=== PATIENT | female | born 1965 | race Caucasian/White ===

== ENCOUNTER → 2020-06-24 | Day surgery (SDC) | payer MEDICAID ==
[2020-06-19 10:23] LABS: Basophils # (auto) 0 10 ^3/uL (0-0.2); Basophils % (auto) 0.2 % (0.0-2.0); Eosinophils # (auto) 0.1 10 ^3/uL (0-0.8); Eosinophils % (auto) 0.8 % (0.0-7.0); Hematocrit 44.1 % (36.0-46.0); Lymphocytes # (auto) 3.4 10 ^3/uL (0.4-5.4); Lymphocytes % (auto) 38.8 % (10.0-50.0); Mean Corpuscular Hemoglobin 28.5 pg (28.0-32.0); Mean Corpuscular Hgb Conc. 31.8 g/dL (32.0-36.0); Mean Corpuscular Volume 89.7 fL (80.0-100.0); Monocytes # (auto) 0.4 10 ^3/uL (0-1.3); Monocytes % (auto) 4.1 % (0.0-12.0); Neutrophils # (auto) 4.9 10 ^3/uL (1.6-8.6); Neutrophils % (auto) 56.1 % (37.0-80.0); Platelet Count (auto) 328 10^3/uL (140-450); Red Blood Cells 4.92 10^6/uL (4.0-5.20); Red Cell Distribution Width 14.5 % (11.8-14.3); White Blood Cell 8.8 10^3/uL (4.4-10.8)
[2020-06-19 10:29] LABS: Urine Bacteria MANY /hpf (None Seen); Urine Blood Negative /uL (Negative); Urine Specific Gravity 1.007 (1.001-1.035); Urine WBC 6 /hpf (0 - 5)
[2020-06-19 10:41] LABS: INR 0.95 (0.9-1.15); Partial Thromboplastin Time 27.8 sec (23.0-31.2)
[2020-06-19 11:01] LABS: Albumin 4.1 g/dL (3.4-5.0); Calcium 9.5 mg/dL (8.5-10.1); Potassium 4.2 mmol/L (3.5-5.1)
[2020-06-19 11:10] LABS: BUN/Creatinine Ratio 8.6; Bilirubin, Total 0.3 mg/dL (0.2-1.0); Total Protein 7.9 g/dL (6.4-8.2)
[~2020-06-24] VITALS: Ht 167.6 cm; Wt 83.9 kg
[~2020-06-24] MED LIST: AMIT25TA9 PO; ARIP1TAB7 PO; ASPI-543 PO; BUPIVACAINE HCL 50 ML ONE; CLINDAMYCIN 900MG IV 50 ML IV ONE; FLUO-125 PO; GABA300C10 PO; GLYCOPYRROLATE 0.2 MG/ML 1ML VIAL ONE; HYDR-531 PO; HYDR25TA4 PO; HYDROmorphone HCL 2 MG/ML VL IV PRN; KETAMINE HCL 10 ML ONE; LIDOCAINE 1% HCL (LOCAL ANESTH.) INJ 20ML MDV ONE; MELO1TAB56 PO; METOCLOPRAMIDE HCL 5MG/ml INJ 2ml VIAL ONE; MIDAZOLAM HCL 1MG/1ML-2 ML VIAL ONE; NALOXONE HCL 0.4 MG/ML VIAL IV PRN; ONDANSETRON HCL 4 MG/2 ML VIAL IV PRN; PROPOFOL 10 MG/ML 20 ML IV ONE; SUCCINYLCHOLINE CHLORIDE 20 MG/ML 10ML VIAL IV ONE; diphenhdrAMINE HCL 50 MG/1 ML VL ONE
[2020-06-24 09:40] VITALS: BP 131/76
== END | disposition home or self-care (01) ==
LOC: SUR 06:39
PROVIDERS: ATTEND Podiatrist
DX: M67.472 Ganglion, left ankle and foot (principal); I10 Essential (primary) hypertension; E66.01 Morbid (severe) obesity due to excess calories; G89.29 Other chronic pain; F32.9 Major depressive disorder, single episode, unspecified; G47.33 Obstructive sleep apnea (adult) (pediatric); G62.9 Polyneuropathy, unspecified; Z88.0 Allergy status to penicillin; Z88.5 Allergy status to narcotic agent; Z79.899 Other long term (current) drug therapy; Z98.890 Other specified postprocedural states; Z68.30 Body mass index [BMI] 30.0-30.9, adult; Z20.828 Contact with and (suspected) exposure to other viral communicable diseases
CPT/HCPCS: 28090; 36415; 80053; 81001; 85025; 85610; 85730; 88304; J0330; J1200; J2001; J2250; J2704; J2765; J3490; U0003

== ENCOUNTER 2024-09-11 08:58 | Day surgery (SDC) | payer MEDICAID ==
[2024-09-09 10:06] LABS: Urine Bacteria None Seen /hpf (None Seen)
[2024-09-09 10:29] LABS: Urine Blood Negative /uL (Negative); Urine Clarity Clear (Clear); Urine Color Light-Yellow (Yellow); Urine Protein, UAD Negative (Negative); Urine Specific Gravity 1.019 (1.001-1.035); Urine Urobilinogen Normal (Negative); Urine WBC 7 /hpf (0 - 5)
[2024-09-09 10:33] LABS: Basophils # (auto) 0 10 ^3/uL (0-0.2); Basophils % (auto) 0.2 % (0.0-2.0); Eosinophils # (auto) 0.1 10 ^3/uL (0-0.8); Eosinophils % (auto) 0.9 % (0.0-7.0); Hematocrit 41.9 % (36.0-46.0); Hemoglobin 13.8 g/dL (12.2-16.2); Lymphocytes # (auto) 3.2 10 ^3/uL (0.4-5.4); Lymphocytes % (auto) 36.9 % (10.0-50.0); Mean Corpuscular Hemoglobin 30.2 pg (28.0-32.0); Mean Corpuscular Volume 91.3 fL (80.0-100.0); Monocytes # (auto) 0.5 10 ^3/uL (0-1.3); Monocytes % (auto) 6.3 % (0.0-12.0); Neutrophils # (auto) 4.8 10 ^3/uL (1.6-8.6); Neutrophils % (auto) 55.7 % (37.0-80.0); Platelet Count (auto) 330 10^3/uL (140-450); Red Blood Cells 4.59 10^6/uL (4.0-5.20); Red Cell Distribution Width 13.8 % (11.8-14.3); White Blood Cell 8.6 10^3/uL (4.4-10.8)
[2024-09-09 10:36] LABS: INR 0.98 (0.9-1.15); Partial Thromboplastin Time 29.1 SEC (24.5-34.5); Prothrombin Time 10.4 sec (9.3-11.8)
[2024-09-09 11:00] LABS: Alanine Aminotransferase 16 U/L (7-40); Alkaline Phosphatase 125 U/L (46-116); Anion Gap 7 (5-15); Aspartate Aminotransferase 21 U/L (13-40); BUN/Creatinine Ratio 15.6 (10.0-20.0); Bilirubin, Total 0.5 mg/dL (0.2-1.0); Blood Urea Nitrogen 12 mg/dL (9-23); Calcium 10.5 mg/dL (8.7-10.4); Carbon Dioxide 28 mmol/L (20-31); Chloride 106 mmol/L (98-107); Glucose 91 mg/dL (74-106); Potassium 4.3 mmol/L (3.5-5.1); Sodium 141 mmol/L (136-145)
[2024-09-09 11:01] LABS: Total Protein 7.7 g/dL (5.7-8.2)
[~2024-09-11] VITALS: Ht 167.6 cm; Wt 76.2 kg
[~2024-09-11 08:58] MED LIST changes: -AMIT25TA9 PO; -ARIP1TAB7 PO; -ASPI-543 PO; +ATOR20TA PO; -BUPIVACAINE HCL 50 ML ONE; -CLINDAMYCIN 900MG IV 50 ML IV ONE; -FLUO-125 PO; -GABA300C10 PO; -GLYCOPYRROLATE 0.2 MG/ML 1ML VIAL ONE; -HYDR-531 PO; -HYDR25TA4 PO; -HYDROmorphone HCL 2 MG/ML VL IV PRN; -KETAMINE HCL 10 ML ONE; -LIDOCAINE 1% HCL (LOCAL ANESTH.) INJ 20ML MDV ONE; -MELO1TAB56 PO; -METOCLOPRAMIDE HCL 5MG/ml INJ 2ml VIAL ONE; -MIDAZOLAM HCL 1MG/1ML-2 ML VIAL ONE; -NALOXONE HCL 0.4 MG/ML VIAL IV PRN; -ONDANSETRON HCL 4 MG/2 ML VIAL IV PRN; -PROPOFOL 10 MG/ML 20 ML IV ONE; -SUCCINYLCHOLINE CHLORIDE 20 MG/ML 10ML VIAL IV ONE; -diphenhdrAMINE HCL 50 MG/1 ML VL ONE
[2024-09-11] MEDS: ceFAZolin 2 GM/D5W100ml 100 ML IV ONE (10:56)
[2024-09-11] MEDS ORDERED: PROPOFOL 10 MG/ML 20 ML IV ONE (11:10)
[2024-09-11] MEDS ORDERED: KETOROLAC TROMETH 30 MG/ML 1ML VIAL ONE (11:10)
[2024-09-11] MEDS ORDERED: ONDANSETRON HCL 4 MG/2 ML VIAL ONE (11:10)
[2024-09-11] MEDS ORDERED: LIDOCAINE 2% (LOCAL ANESTH.) PF 5ml SDV ONE (11:10)
[2024-09-11] MEDS ORDERED: DexAMETHasone SOD PHOS 10MG/1ML VIAL INJ ONE ×2 (11:10→11:42)
[2024-09-11] MEDS ORDERED: GLYCOPYRROLATE 0.2 MG/ML 1ML VIAL ONE (11:10)
[2024-09-11] MEDS ORDERED: KETAMINE 50mg/ML 1ml syringe ONE (11:11)
[2024-09-11] MEDS ORDERED: fentaNYL CITRATE 100 MCG/2 ML VL ONE (11:11)
[2024-09-11] MEDS ORDERED: EPINEPHrine HCL 1 MG/1 ML AMP ONE (11:42)
--- NOTE | 2024-09-11 11:48 | DVHOP2 ---
Operative Report - 2 Report Details Date: 09/11/24 Preop Diagnosis: 1. 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 Left foot pain 3. Left medial border hallux ingrown Postop Diagnosis: Same as preop Surgeon: Ceci Medina MD Anesthesiologist: See anesthesia Anesthesia: General Implant: Arthrex 20 x 20 staple Consent: The patient was informed of the risks and benefits of the procedure. These include but are not limited to complications of anesthesia, postoperative infection, incomplete relief of symptoms, recurrence of symptoms, damage to blood vessels, nerves and tendons, deep venous thrombosis, pulmonary embolism and possible need for repeat surgery in the future. Complications: None Estimated Blood Loss: Minimal Fluids: See anesthesia Findings: Consistent with diagnosis Indications for Surgery: Worsening left foot pain Name of Procedure Performed 1. Left second TMT arthrodesis (95654) 2. Left hallux medial border matrixectomy (81261) Procedure Details Procedure Details: PRE-PROCEDURE INFORMATION: In the pre-op holding area, the extremity to be operated on was clearly marked and the patient verified correct laterality of the marking. The patient was transferred to the OR table and placed in a supine position. A timeout was performed in which identification of the correct patient, procedure, location, and materials was done. The left foot and leg were prepped and draped in normal sterile fashion. The foot and leg were exsanguinated and the thigh tourniquet was inflated to 250 mmHg. DESCRIPTION OF PROCEDURE: Attention was directed to the left second metatarsal cuneiform joint where an incision was made on the dorsal aspect of the foot just over the second MC joint. The incision was deepened through blunt and sharp dissection. Care was taken throughout dissection to avoid damage to neurovascular structures including the deep peroneal nerve and dorsalis pedis artery as well as the extensor tendons. This incision was carried to the level of the second metatarsal cuneiform joint where the joint capsule was incised for inspection of the joint. There was notable degenerative changes of the articular cartilage of the joint. The periosteum of the second metatarsal base and medial cuneiform were reflected and utilizing a joint retractor, the joint was distracted and any remaining cartilage was removed using sharp instrumentation. The cartilage was removed to the level of subchondral bone on both sides of the joint. Utilizing a Arthrex staple, the staple was placed over the fusion site and adequate compression of the second metatarsal cuneiform joint was obtained. Proper placement of hardware as well as compression of the joint was verified on intraoperative fluoroscopy. Attention was directed to the left hallux medial border. Using a freer elevator, [place] Anvil, and hemostat, the offending nail and/or nail border(s) was elevated and removed. Mild serous drainage noted, no purulent drainage. Non- viable tissue was removed with a curette. The nail border(s) were then treated with 3 applications of approximately 20-30 seconds of slurred nitrate followed by neutralization with alcohol. Bacitracin, sterile gauze and Coban dressing was applied to the digit. All surgical wounds were irrigated copiously with saline and closed in layers with the aforementioned suture material. A dry sterile dressing was placed on the surgical extremity. The patient was placed in a cam boot POSTOPERATIVE INFORMATION: The patient tolerated the above noted procedure and anesthesia well and was transferred to the PACU with vital signs stable, and vascular status intact with capillary refill intact to all digits. Postoperative instructions reviewed in detail with the patient with written instructions provided. Patient will return to clinic in approximately 10-14 days for first postoperative visit. Patient has the number of the clinic and was instructed to call prior to that time should any problems, questions, or concerns arise. Condition Good Disposition Home CECI MEDINA DPM Sep 11, 2024 11:48
[2024-09-11] MEDS ORDERED: BUPIVACAINE 0.5% MPF INJ 30ML SDV IJ ONE (11:50)
[2024-09-11 11:51] VITALS: PULSE 79; RESP 14; TEMP 98.4; O2SAT 100
[2024-09-11] MEDS ORDERED: NALOXONE HCL 0.4 MG/ML VIAL IV PRN (12:00)
[2024-09-11] MEDS ORDERED: ePHEDrine SULFATE 50 MG/ML AMP IV PRN (12:00)
[2024-09-11] MEDS ORDERED: hydrALAZINE HCL 20 MG/ML VL IV PRN (12:00)
[2024-09-11] MEDS ORDERED: FLUMAZENIL 0.1 MG/ML INJ 10ML MDV IV PRN (12:00)
[2024-09-11] MEDS ORDERED: ONDANSETRON HCL 4 MG/2 ML VIAL IV PRN (12:00)
[2024-09-11] MEDS ORDERED: fentaNYL CITRATE 100 MCG/2 ML VL IV PRN (12:00)
[2024-09-11] MEDS: HYDROmorphone HCL 2 MG/ML VL/or syr IV PRN (12:08)
[2024-09-11] MEDS ORDERED: ESMOLOL HCL 10 ML IV ONE (12:22)
[2024-09-11] MEDS ORDERED: BACITRACIN TOP OINT 1 UD PKG TOP ONE (12:48)
[2024-09-11] MEDS: oxyCODONE HCL 5MG TAB PO ONE (12:51)
[2024-09-11 13:06] VITALS: BP 132/83; PULSE 73; RESP 16; O2SAT 100
[2024-09-11] MEDS ORDERED: HYDROmorphone HCL 2 MG/ML VL/or syr ONE (13:10)
== END 2024-09-11 13:25 | disposition home or self-care (01) ==
LOC: SUR 08:58
PROVIDERS: ATTEND Podiatrist
DX: M19.072 Primary osteoarthritis, left ankle and foot (principal); M20.5X2 Other deformities of toe(s) (acquired), left foot; L60.0 Ingrowing nail; M79.672 Pain in left foot; E78.5 Hyperlipidemia, unspecified; Z88.0 Allergy status to penicillin; Z88.8 Allergy status to other drugs, medicaments and biological substances; Z98.890 Other specified postprocedural states
CPT/HCPCS: 11750; 28740; 36415; 80053; 81001; 85025; 85610; 85730; J0171; J1100; J1171; J1885; J2003; J2405; J2704; J3010; J3490

== ENCOUNTER 2025-09-08 11:07 | Day surgery (SDC) | payer MEDICAID ==
[2025-09-05 11:25] LABS: Hematocrit 41.6 % (36.0-46.0); Hemoglobin 14.1 g/dL (12.2-16.2); Mean Corpuscular Hemoglobin 30.6 pg (28.0-32.0); Mean Corpuscular Volume 90.4 fL (80.0-100.0); Nucleated Red Blood Cells % 0.2 %
[2025-09-05 11:40] LABS: INR 0.98 (0.9-1.15); Partial Thromboplastin Time 28.3 SEC (24.5-34.5); Prothrombin Time 10.4 sec (9.3-11.8)
[2025-09-05 12:44] LABS: Alanine Aminotransferase 13 U/L (7-40); Albumin 4.8 g/dL (3.2-4.8); Alkaline Phosphatase 109 U/L (46-116); Anion Gap 8 (5-15); BUN/Creatinine Ratio 10.8 (10.0-20.0); Bilirubin, Total 0.4 mg/dL (0.2-1.0); Blood Urea Nitrogen 9 mg/dL (9-23); Calcium 9.5 mg/dL (8.7-10.4); Carbon Dioxide 30 mmol/L (20-31); Chloride 103 mmol/L (98-107); Glucose 105 mg/dL (74-106); Potassium 3.8 mmol/L (3.5-5.1); Sodium 141 mmol/L (136-145); Total Protein 7.6 g/dL (5.7-8.2)
[2025-09-05 12:50] LABS: Urine Budding Yeast OCCASIONAL /hpf (None Seen); Urine Protein, UAD Negative (Negative)
[~2025-09-08] VITALS: Ht 165.1 cm; Wt 80.7 kg
[~2025-09-08 11:07] MED LIST changes: +ARIP2TAB PO; -ATOR20TA PO; +FLUO40CA PO; +HYDR-3682 PO; +LORA-622 PO; +ROSU20TA56 PO; +TRAZ-228 PO
[2025-09-08 11:50] VITALS: TEMP 97.2
[2025-09-08] MEDS: ceFAZolin 2 GM/D5W50ml 50 ML IV ONE (12:38)
[2025-09-08] MEDS: LIDOCAINE 1% HCL (LOCAL ANESTH.) INJ 20ML MDV ONE (12:48)
[2025-09-08] MEDS ORDERED: MIDAZOLAM HCL 2MG/2ML 2ml VIAL (1mg/ml) IV PRN ×2 (13:00→13:30)
[2025-09-08] MEDS ORDERED: ONDANSETRON HCL 4 MG/2 ML VIAL IV PRN ×2 (13:00→13:30)
[2025-09-08] MEDS ORDERED: hydrALAZINE HCL 20 MG/ML VL IV PRN ×2 (13:00→13:30)
--- NOTE | 2025-09-08 13:14 | DVHOP2 ---
Operative Report - 2 Report Details Date: 09/08/25 Preop Diagnosis: 1. Right foot tailors bunion 2. Left foot tailors bunion 3. Left foot neuroma 4. Left foot pain 5. Right foot pain Postop Diagnosis: Same as preop Surgeon: Ceci Medina MD Anesthesiologist: See anesthesia Anesthesia: Mac Implant: 6 2 K-wire x2 Consent: The patient was informed of the risks and benefits of the procedure. These include but are not limited to complications of anesthesia, postoperative infection, incomplete relief of symptoms, recurrence of symptoms, damage to bl ood vessels, nerves and tendons, deep venous thrombosis, pulmonary embolism and possible need for repeat surgery in the future. Complications: None Estimated Blood Loss: Minimal Fluids: See anesthesia Findings: Consistent with diagnosis Indications for Surgery: Worsening foot pain Name of Procedure Performed 1. Right foot tailors bunionectomy (06432) 2. Left foot tailors bunionectomy (92194) 3. Left foot neuroma excision (85022) 4. Left foot nerve decompression (40332) Procedure Details Procedure Details: PRE-PROCEDURE INFORMATION: In the pre-op holding area, the extremity to be operated on was clearly marked and the patient verified correct laterality of the marking. The patient was transferred to the OR table and placed in a supine position. A timeout was performed in which identification of the correct patient, procedure, location, and materials was done. The bilateral foot and leg were prepped and draped in normal sterile fashion. The foot and leg were exsanguinated in the left foot Esmarch was placed DESCRIPTION OF PROCEDURE: Attention was directed to the left lateral fifth metatarsal head where a stab incision was made. This incision was deepened through blunt and sharp dissection. Care was taken to avoid damage to neuro vascular structures throughout dissection. The incision was carried to the level of the fifth metatarsal head where it was noted there was no significantly increased lateral deviation angle of the fifth metatarsal, but the lateral aspect of the fifth metatarsal head appeared to be prominent. This indicated that the patient would benefit from an ostectomy of the metatarsal head without osteotomy. Using an MIS bur, an osteotomy was made across the neck of the metatarsal head. Using a 0.62 K wire, the wire was then placed down the shaft of the 5th metatarsal holding the head in the appropriate position. Attention was directed to the left foot where linear incision was made at the dorsal 3rd interspace. Care was taken throughout the dissection to avoid damage to the neurovascular and tendinous structures. Hemostasis was achieved via electrocautery. The incision was deepened through blunt dissection to the level of the deep transverse intermetatarsal ligament. Once the ligament was visualized it was transected using dissecting scissors, effectively decompressing the underlying plantar nerve. 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 The nerve was dissected proximally and was transected. The neuroma was removed and sent to pathology. Attention was directed to the right lateral fifth metatarsal head where a stab incision was made. This incision was deepened through blunt and sharp dissection. Care was taken to avoid damage to neurovascular structures throughout dissection. The incision was carried to the level of the fifth metatarsal head where it was noted there was no significantly increased lateral deviation angle of the fifth metatarsal, but the lateral aspect of the fifth metatarsal head appeared to be prominent. This indicated that the patient would benefit from an ostectomy of the metatarsal head without osteotomy. Using an MIS bur, an osteotomy was made across the neck of the metatarsal head. Using a 0.62 K wire, the wire was then placed down the shaft of the 5th metatarsal holding the head in the appropriate position. All surgical wounds were irrigated copiously with saline and closed in layers with the aforementioned suture material. A dry sterile dressing was placed on the surgical extremity. The patient was placed in a post op shoe POSTOPERATIVE INFORMATION: The patient tolerated the above noted procedure and anesthesia well and was transferred to the PACU with vital signs stable, and vascular status intact with capillary refill intact to all digits. Postoperative instructions reviewed in detail with the patient with written instructions provided. Patient will return to clinic in approximately 10-14 days for first postoperative visit. Patient has the number of the clinic and was instructed to call prior to that time should any problems, questions, or concerns arise. Condition Good Disposition Home Visit Coding Podiatry Date of Service if different f: Sep 08, 2025 Billing Provider: CECI MEDINA DPM Podiatry Common Visit Codes: PROCEDURE ONLY CECI MEDINA DPM Sep 08, 2025 13:14
[2025-09-08] MEDS ORDERED: BUPIVACAINE 0.5% P/F INJ 10 ML VIAL ONE (13:15)
[2025-09-08 13:20] VITALS: O2SAT 100
[2025-09-08] MEDS: MORPHINE SULFATE 4 MG/ML SYR/VIAL IV PRN (13:24)
[2025-09-08] MEDS ORDERED: fentaNYL CITRATE 100 MCG/2 ML VL IV PRN (13:30)
[2025-09-08] MEDS ORDERED: KETOROLAC TROMETH 30 MG/ML 1ML VIAL IV ONE (13:30)
[2025-09-08] MEDS ORDERED: fentaNYL CITRATE 100 MCG/2 ML VL ONE (13:35)
[2025-09-08] MEDS ORDERED: MIDAZOLAM HCL 2MG/2ML 2ml VIAL (1mg/ml) ONE (13:35)
[2025-09-08] MEDS ORDERED: MEPERIDINE HCL (25 MG/ML) 1ML VIAL ONE (13:35)
[2025-09-08] MEDS: MORPHINE SULFATE INJ 2 MG/ml SYRG ONE (13:35)
[2025-09-08] MEDS: KETOROLAC TROMETH 30 MG/ML 1ML VIAL IV ONE (13:39)
[2025-09-08] MEDS ORDERED: PROPOFOL 10 MG/ML 20 ML IV ONE (13:47)
[2025-09-08] MEDS ORDERED: KETAMINE 50mg/ML 10ml Vial 10 ML ONE (13:51)
[2025-09-08 14:15] VITALS: BP 154/81; PULSE 75; RESP 14; O2SAT 97
== END 2025-09-08 14:40 | disposition home or self-care (01) ==
LOC: SUR 11:07
PROVIDERS: ATTEND Podiatrist
DX: M21.622 Bunionette of left foot (principal); M21.621 Bunionette of right foot; G57.62 Lesion of plantar nerve, left lower limb; F32.A Depression, unspecified; E78.5 Hyperlipidemia, unspecified; E66.01 Morbid (severe) obesity due to excess calories; F17.210 Nicotine dependence, cigarettes, uncomplicated; Z98.890 Other specified postprocedural states; Z88.0 Allergy status to penicillin; Z68.30 Body mass index [BMI] 30.0-30.9, adult; Z88.5 Allergy status to narcotic agent; Z79.899 Other long term (current) drug therapy
CPT/HCPCS: 28080; 28308; 36415; 80053; 81001; 85025; 85610; 85730; J0690; J1100; J1885; J2003; J2175; J2250; J2270; J2704; J3010; J3490